=== PATIENT | male | born 1990 | race Caucasian/White ===

== ENCOUNTER 2016-08-01 00:48 | Emergency (ER) | payer MEDICAID ==
[~2016-08-01] VITALS: Ht 165.1 cm; Wt 72.6 kg
[2016-08-01 02:20] VITALS: BP 136/100
== END 2016-08-01 02:30 | disposition home or self-care (01) ==
LOC: ER 00:48
DX: S00.93XA Contusion of unspecified part of head, initial encounter (principal); R42 Dizziness and giddiness; F17.210 Nicotine dependence, cigarettes, uncomplicated; Y08.89XA Assault by other specified means, initial encounter; Y93.89 Activity, other specified; Y99.8 Other external cause status; Y92.512 Supermarket, store or market as the place of occurrence of the external cause
CPT/HCPCS: 70450